=== PATIENT | female | born 1930 | race Caucasian/White ===

== ENCOUNTER 2016-10-25 08:33 | Emergency (ER) | payer MEDICARE ==
[~2016-10-25] VITALS: Ht 142.2 cm; Wt 55.5 kg
[~2016-10-25 08:33] MED LIST: ALBU0.086 NEB; ATRO17AE INH; FURO20 PO; HYDR-3533 PO; POTA10IN2 PO; PROT40TA PO; SOTA80TA PO; VASO10TA8 PO
[2016-10-25 08:36] VITALS: BP 148/77; PULSE 66; RESP 16; TEMP 98.2; O2SAT 98
[2016-10-25] MEDS ORDERED: TETANUS/DIPHTHERIA TOXOID ADULT 0.5 ML VIAL IM ONE (08:45)
[2016-10-25] MEDS ORDERED: ACETAMINOPHEN 500 MG CPLT PO ONE (08:45)
--- NOTE | 2016-10-25 08:49 | PD ---
HPI Chief Complaint: Fall Time Seen by Provider: 08:44 Travel History International Travel<30 days: No Contact w/Intl Traveler<30days: No Traveled to known affect area: No History of Present Illness HPI The patient is a 86-year-old female who presents to the emergency department after falling out of a wheelchair. The patient was sitting in her wheelchair when she leaned forward and fell, striking her right knee and the right frontal forehead. There was no loss of consciousness according to the person who was pushing the wheelchair. The patient does complain of mild right headache and right knee pain, the patient apparently takes no blood thinners. The patient does have a history of dementia and is a somewhat limited historian. She denies any neck pain, chest pain, shortness breath, or abdominal pain. Last tetanus shot is unknown. Symptoms are mild, exacerbated after falling out of a wheelchair, and mostly self alleviating. The patient is able to bear weight, does walk with a walker, but also uses a wheelchair. PFSH Past Medical History Arthritis: Yes Asthma: No Autoimmune Disease: No Blood Disorders: No Anxiety: No Depression: No Heart Rhythm Problems: No Cancer: No Cardiovascular Problems: Yes (SVT) High Cholesterol: Yes Chemotherapy: No Chest Pain: No Congestive Heart Failure: No COPD: No Cerebrovascular Accident: No Coronary Artery Disease: Yes Dementia: Yes Diabetes: No Diminished Hearing: No Endocrine: No Gastrointestinal Disorders: Yes GERD: No Glaucoma: No Genitourinary: No Headaches: No Hepatitis: No Hiatal Hernia: Yes Hypertension: Yes Immune Disorder: No Kidney Stones: No Musculoskeletal: Yes (osteoarthritis w/ spondylysis) Neurologic: No Psychiatric: No Reproductive: No Respiratory: Yes (pulmonary stenosis) Immunizations Current: No Migraines: No Myocardial Infarction: No Radiation Therapy: No Renal Failure: No Seizures: No Sickle Cell Disease: No Sleep Apnea: No Thyroid Disease: No Ulcer: Yes (gi bleed due to ulcer) PNEUMOCCOCAL Vaccine (Year): 1 ?: Not Menopausal: Yes Past Surgical History Abdominal Surgery: No AICD: No Appendectomy: No Arteriovenous Shunt: No Body Medical Devices: PACEMAKER Cardiac Surgery: Yes (open heart 1965, 2003 STENT, 2006 STENT, PACEMAKER 2006) Cholecystectomy: No Coronary Artery Bypass Graft: Yes Coronary Stent: Yes (x2) Ear Surgery: No Endocrine Surgery: No Eye Surgery: Yes (CATARACTS BILATERAL) Genitourinary Surgery: No Gynecologic Surgery: No Insulin Pump: No Joint Replacement: No Oral Surgery: No Pacemaker: Yes ([facility] 03/18/2007 DR. PATTEN) Thoracic Surgery: No Valve Replacement: Yes ("open heart surgery" 1965 w/ valve(s) replaced) Other Surgery: Yes (stents superior mesentary arteries ) Social History Alcohol Use: No Tobacco Use: No Substance Use: No Allergies-Medications (Allergen,Severity, Reaction): Coded Allergies: Cardizem (Verified Allergy, Severe, 10/25/16) "SEVERE DECREASED BLOOD PRESSURE AND COLLAPSE" PER DAUGHTER CARISSA Penicillin (Verified Allergy, Severe, 10/25/16) PER PT, SHE IS NOT ALLERGIC AND DOES NOT KNOW HOW IT IS ON HER ALLERGY LIST Phenergan (Verified Allergy, Intermediate, edema, delusions, 10/25/16) MRI PRECAUTION (Verified Adverse Reaction, Severe, PACEMAKER (KD) , 10/25/16) Reported Meds & Prescriptions Reported Meds & Active Scripts Active Reported Ipratropium Neb (Ipratropium [place]) 0.5 Mg/2.5 Ml Amp 0.5 Mg NEB Q6HR NEB K-Tab (Potassium Chloride) 10 Meq Tab 5 Meq PO EVERY OTHER DAY Simvastatin 20 Mg Tab 20 Mg PO DAILY Lasix (Furosemide) 20 Mg Tab 20 Mg PO EVERY OTHER DAY Hydrocodone-Acetaminophen 5-325 mg Tab 1 Tab PO Q8HR PRN Protonix (Pantoprazole Sodium) 40 Mg Tab 40 Mg PO BID Sotalol (Sotalol HCl) 80 Mg Tab 80 Mg PO DAILY Enalapril (Enalapril Maleate) 20 Mg Tab 20 Mg PO BID Review of Systems Except as stated in HPI: all other systems reviewed are Neg Eyes: No: Visual changes HENT: Positive: Headaches, No: Neck Pain Cardiovascular: No: Chest Pain or Discomfort Respiratory: No: Shortness of Breath Gastrointestinal: No: Nausea, Vomiting, Abdominal Pain Musculoskeletal: Positive: Edema, Pain Neurologic: No: Change in Mentation Physical Exam Narrative GENERAL: Awake, alert, very pleasant 86-year-old female who appears her stated age and is in no acute respiratory distress. SKIN: Focused skin assessment warm/dry. Abrasion with hematoma noted over the right frontal forehead and superficial abrasion over the extensor surface of the right knee, overlying the patella noted. HEAD: Hematoma with abrasion to the right frontal forehead.. EYES: Pupils equal and round. Pupils are 2 mm bilateral and reactive. ENT: No nasal bleeding or discharge. Mucous membranes pink and moist. NECK: Trachea midline. No JVD. No tenderness of the cervical vertebrae. GASTROINTESTINAL: Abdomen soft, non-tender, nondistended. MUSCULOSKELETAL: Minimal edema of the anterior aspect the right knee with superficial abrasion. Patella is midline. She is able flex the knee to 45. Full range of motion of the left lower extremity and upper extremity is bilateral. NEUROLOGICAL: Awake and alert. No obvious cranial nerve deficits. Motor grossly within normal limits. Normal speech. Follows simple commands. PSYCHIATRIC: Appropriate mood and affect; insight and judgment normal. Data Data Last Documented VS Vital Signs Date Time Temp Pulse Resp B/P Pulse Ox O2 Delivery O2 Flow Rate FiO2 10/25/16 08:46 100 10/25/16 08:36 98.2 66 16 148/77 Orders Tetanus/Diphtheria Tox Adult (Tetanus/Di (10/25/16 08:45) Knee, Ltd (1 Or 2vws) (10/25/16 ) Ct Brain W/O Iv Contrast(Rout) (10/25/16 ) Wound Care (10/25/16 08:44) Acetaminophen (Tylenol) (10/25/16 08:45) MDM Medical Decision Making Medical Screen Exam Complete: Yes Emergency Medical Condition: Yes Medical Record Reviewed: Yes Interpretation(s) X-ray of the right knee reveals no acute fracture or dislocation CT the brain reveals stable atrophy, no acute findings. Differential Diagnosis Differential diagnosis includes closed head injury, intracranial hemorrhage, concussion, fracture, contusion, hematoma, abrasion. Narrative Course A CT of the brain and x-ray the right knee were obtained. Tetanus shot was updated. The patient was administered Tylenol for pain. The patient's abrasions were cleaned and Polysporin was applied. X-ray of the right knee is unremarkable, no evidence of acute fracture or dislocation. CT the brain reveals chronic atrophy, no acute hemorrhage. The patient is advised elevate the right knee, ice as needed, activity as tolerated, and wound care instructions. Return if symptoms worsen or progress. Diagnosis Primary Impression: Contusion of right knee Qualified Code: S80.01XA - Contusion of right knee, initial encounter Additional Impressions: Closed head injury Qualified Code: S09.90XA - Closed head injury, initial encounter Abrasion Patient Instructions: General Instructions Additional Instructions: Rest, ice, elevate right knee, activity as tolerated. Wound care instructions. Return if symptoms worsen or progress. Follow-up with your primary physician. Med/Other Pt SpecificInfo: No Change to Meds Disposition: 01 DISCHARGE HOME Condition: Stable Taz Jacobs MD Oct 25, 2016 08:49
[2016-10-25] MEDS ORDERED: K-TA10TA PO (08:55)
[2016-10-25] MEDS ORDERED: HYDR-3516 PO (08:55)
[2016-10-25] MEDS ORDERED: SOTA80TA PO (08:55)
[2016-10-25] MEDS ORDERED: FURO1TAB62 PO (08:55)
[2016-10-25] MEDS ORDERED: SIMV20TA PO (08:55)
[2016-10-25] MEDS ORDERED: PROT40TA PO (08:55)
[2016-10-25] MEDS ORDERED: ENAL20TA PO (08:55)
[2016-10-25] MEDS ORDERED: IPRA0.02 NEB (08:55)
--- NOTE | 2016-10-25 09:22 | RADRPT ---
EXAM DATE/TIME: 10/25/2016 09:01 [facility] COMPARISON: No previous studies available for comparison. INDICATIONS : Fell out of wheelchair this morning, right knee abrasion. MEDICAL HISTORY : None. SURGICAL HISTORY : None. ENCOUNTER: Initial ACUITY: 1 day PAIN SCORE: 1/10 LOCATION: Right knee FINDINGS: Two view examination of the right knee demonstrates no evidence of fracture or dislocation. Bony min eralization is normal. The suprapatellar soft tissues have a normal configuration. CONCLUSION: 1. No acute fracture or dislocation. Heber Ma MD on October 25, 2016 at 9:19 Board Certified Radiologist. This report was verified electronically.
--- NOTE | 2016-10-25 09:25 | RADRPT ---
EXAM DATE/TIME: 10/25/2016 08:58 [facility] COMPARISON: CT BRAIN W/O CONTRAST, December 19, 2014, 16:57. INDICATIONS : Trauma. Fell out of wheelchair and hit right forehead. RADIATION DOSE: 60.38 CTDIvol (mGy) MEDICAL HISTORY : Dementia. Hypertension. SURGICAL HISTORY : CABG Pacemaker. ENCOUNTER: Initial ACUITY: 1 day PAIN SCALE: 4/10 LOCATION: Right frontal TECHNIQUE: Multiple contiguous axial images were obtained of the head. Using automated exposure control and adj ustment of the mA and/or kV according to patient size, radiation dose was kept as low as reasonably a chievable to obtain optimal diagnostic quality images. DICOM format image data is available electro nically for review and comparison. FINDINGS: CEREBRUM: The ventricles are normal for age. There is stable bilateral cortical atrophy and chronic white alfreda er changes. No evidence of midline shift, mass lesion, hemorrhage or acute infarction. No extra-axia l fluid collections are seen.POSTERIOR FOSSA: The cerebellum and brainstem are intact. The 4th ventricle is midline. The cerebellopontine angle i s unremarkable. EXTRACRANIAL: The visualized portion of the orbits is intact. SKULL: The calvaria is intact. No evidence of skull fracture. CONCLUSION: 1. Stable CT scan of the brain compared to 2014. No significant change in the bilateral cortical atro phy and chronic white matter changes. Les Quintero MD on October 25, 2016 at 9:20 Board Certified Radiologist. This report was verified electronically.
== END 2016-10-25 09:36 | disposition home or self-care (01) ==
LOC: PHED 08:33
DX: S80.01XA Contusion of right knee, initial encounter (principal); S09.90XA Unspecified injury of head, initial encounter; W05.0XXA Fall from non-moving wheelchair, initial encounter; Z23 Encounter for immunization
CPT/HCPCS: 70450; 73560; 90471; 90714